=== PATIENT | male | born 1970 | race Two or more races ===

== ENCOUNTER 2017-02-12 01:07 | Emergency (ER) | payer SELFPAY ==
[~2017-02-12] VITALS: Ht 190.5 cm; Wt 104.0 kg
[2017-02-12] MEDS ORDERED: ACETAMINOPHEN WITH CODEINE 300/30MG TABLET PO ONE (02:15)
[2017-02-12] MEDS ORDERED: BACITRACIN ZINC OINT UDPKT TOP ONE (02:15)
[2017-02-12] MEDS ORDERED: IBUPROFEN 600MG TABLET PO ONE (02:15)
[2017-02-12] MEDS ORDERED: DIAZEPAM 2 MG TABLET PO ONE (04:15)
[2017-02-12] MEDS ORDERED: MORPHINE SULFATE 10 MG/ML CPJ IM ONE (09:00)
[2017-02-12] MEDS ORDERED: ONDANSETRON HCL 4MG/2ML VIAL IM ONE (09:00)
[2017-02-12 09:36] VITALS: BP 147/80
== END 2017-02-12 11:37 | disposition home or self-care (01) ==
LOC: ER 01:08
DX: S32.019A Unspecified fracture of first lumbar vertebra, initial encounter for closed fracture (principal); S32.029A Unspecified fracture of second lumbar vertebra, initial encounter for closed fracture; S32.039A Unspecified fracture of third lumbar vertebra, initial encounter for closed fracture; S32.049A Unspecified fracture of fourth lumbar vertebra, initial encounter for closed fracture; S09.8XXA Other specified injuries of head, initial encounter; F17.210 Nicotine dependence, cigarettes, uncomplicated; F12.10 Cannabis abuse, uncomplicated; S50.311A Abrasion of right elbow, initial encounter; V13.4XXA Pedal cycle driver injured in collision with car, pick-up truck or van in traffic accident, initial encounter; Y93.89 Activity, other specified; Y92.488 Other paved roadways as the place of occurrence of the external cause
CPT/HCPCS: 70450; 72100; 72125; 72131; 73080; 96372; 99284; J2270; J2405; Z7610